=== PATIENT | female | born 1970 | race Two or more races ===

== ENCOUNTER 2017-05-12 09:37 | Emergency (ER) | payer BC ==
[2017-05-12 09:57] VITALS: BP 155/95; PULSE 84; TEMP 98.3; BMI 37.5
[2017-05-12] MEDS ORDERED: KETOROLAC TROMETHAMINE 60 MG/2 ML VIAL IM ONE (11:11)
[2017-05-12] MEDS ORDERED: KETOROLAC TROMETHAMINE 60 MG/2 ML VIAL ONE (11:17)
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
== END 2017-05-12 12:25 | disposition home or self-care (01) ==
LOC: JERFT 09:37
PROC: 3E0233Z Introduction of Anti-inflammatory into Muscle, Percutaneous Approach (ICD-10-PCS; principal; 2017-05-12)
DX: M25.511 Pain in right shoulder (principal); I10 Essential (primary) hypertension
CPT/HCPCS: 73030-TC-RT; 99281-25

== ENCOUNTER 2019-05-16 14:32 | Emergency (ER) | payer BC ==
--- NOTE | 2019-05-16 14:45 | PDOC ---
Rapid Medical Evaluation Time Seen by Provider: 05/16/19 14:43 Medical Evaluation: Allergies Allergy/AdvReac Type Severity Reaction Status Date / Time No Known Allergies Allergy Verified 05/12/17 09:53 05/16/19 14:43 I have performed a brief in-person evaluation of this patient. The patient presents with a chief complaint of: coughing, sore throat x 4 days Pertinent physical exam findings: post nasal drip, congestion I have ordered the following: nothing The patient will proceed to the ED for further evaluation. Discharge Disposition - Diagnosis URI (upper respiratory infection) - Referrals - Patient Instructions - Post Discharge Activity
[2019-05-16 14:46] VITALS: BP 136/86; PULSE 98; TEMP 98.7; BMI 37.5
[2019-05-16] MEDS ORDERED: ACETAMINOPHEN 500 MG TABLET (FP) PO ONE (15:32)
[2019-05-16] MEDS ORDERED: ACETAMINOPHEN 500 MG TABLET (FP) ONE (15:36)
--- NOTE | 2019-05-16 15:36 | PDOC ---
History of Present Illness - General Chief Complaint: Sore Throat Stated Complaint: SORE THROAT Time Seen by Provider: 05/16/19 14:43 History Source: Patient Exam Limitations: No Limitations - History of Present Illness Initial Comments: 05/16/19 15:33 48 year old female with history of tubal ligation presents for coughing, sorethroat x 2 weeks. Denies fever or chills, using no medication for symptoms today. Is this a multiple visit Asthma Patient?: No Timing/Duration: 1 week Severity: mild Modifying Factors: improves with: cold therapy Associated Symptoms: reports: cough, headaches, nausea/vomiting. denies: fever/ chills Aspirin Received prior to arrival: Yes: no aspirin today Past History - Travel Traveled outside of the country in the last 30 days: No - Past Medical History Allergies/Adverse Reactions: Allergies Allergy/AdvReac Type Severity Reaction Status Date / Time No Known Allergies Allergy Verified 05/16/19 14:46 Home Medications: Ambulatory Orders Naproxen [Naprosyn -] 500 mg PO BID #14 tablet 05/12/17 Benzonatate [Tessalon Pearls -] 100 mg PO TID #21 capsule 05/16/19 Loratadine [Claritin] 10 mg PO DAILY #10 tablet 05/16/19 COPD: No HTN: Yes (Not on meds (03/2015).) - Suicide/Smoking/Psychosocial Hx Smoking History: Never smoked Have you smoked in the past 12 months: Yes Number of Cigarettes Smoked Daily: 4 Information on smoking cessation initiated: No 'Breaking Loose' booklet given: 05/12/17 Hx Alcohol Use: No Drug/Substance Use Hx: No Substance Use Type: None Review of Systems - Review of Systems Able to Perform ROS?: Yes Is the patient limited [place] proficient: No Constitutional: No: Chills, Fever HEENTM: Yes: Throat Pain. No: Eye Pain Respiratory: No: Shortness of Breath, Stridor, Wheezing Cardiac (ROS): No: Lightheadedness, Palpitations ABD/GI: No: Blood Streaked Bowels, Poor Appetite, Poor Fluid Intake, Indigestion : No: Incontinence, Testicular Swelling Musculoskeletal: No: Joint Pain Integumentary: No: Erythema, Flushing Neurological: No: Numbness, Paresthesia, Weakness *Physical Exam - Vital Signs Last Vital Signs Temp Pulse Resp BP Pulse Ox 98.7 F 98 H 19 136/86 100 05/16/19 14:44 05/16/19 14:44 05/16/19 14:44 05/16/19 14:44 05/16/19 14:44 - Physical Exam General Appearance: Yes: Nourished, Appropriately Dressed HEENT: positive: TMs Normal, Pharyngeal Erythema Neck: positive: Supple. negative: Lymphadenopathy (R), Lymphadenopathy (L) Respiratory/Chest: positive: Lungs Clear Cardiovascular: positive: Regular Rate Neurologic: positive: Fully Oriented, Alert Medical Decision Making - Medical Decision Making 05/16/19 15:35 48 year old female with history of tubal ligation presents for coughing, sorethroat x 2 weeks. allergic rhinnitis -throat culture -analgesia 05/16/19 16:14 negative strep Rx: tessalraymond perles claritin 05/16/19 16:22 *DC/Admit/Observation/Transfer Diagnosis at time of Disposition: URI (upper respiratory infection) Qualifiers: URI type: unspecified viral URI Qualified Code(s): J06.9 - Acute upper respiratory infection, unspecified Allergic rhinitis Qualifiers: Allergic rhinitis trigger: unspecified Allergic rhinitis seasonality: unspecified Qualified Code(s): J30.9 - Allergic rhinitis, unspecified - Discharge Dispostion Disposition: HOME Condition at time of disposition: Good Decision to Admit order: No - Prescriptions Prescriptions: Benzonatate [Tessalon Pearls -] 100 mg PO TID #21 capsule Loratadine [Claritin] 10 mg PO DAILY #10 tablet - Referrals Referrals: Galileo Ledesma MD [Primary Care Provider] - - Patient Instructions Printed Discharge Instructions: DI for Viral Upper Respiratory Infection -- Adult Additional Instructions: Please minimize smoking Take medication as prescribed - Post Discharge Activity
== END 2019-05-16 16:43 | disposition home or self-care (01) ==
LOC: JERFT 14:32
DX: J06.9 Acute upper respiratory infection, unspecified (principal); J30.9 Allergic rhinitis, unspecified; Z72.0 Tobacco use
CPT/HCPCS: 87070; 87880; 99281-25

== ENCOUNTER 2019-05-26 11:18 | Emergency (ER) | payer BC ==
[2019-05-26 11:25] VITALS: BP 148/86; PULSE 86; TEMP 98.4; BMI 37.5
--- NOTE | 2019-05-26 11:54 | PDOC ---
History of Present Illness - General Chief Complaint: Eye Problem Stated Complaint: EYE PROBLEM Time Seen by Provider: 05/26/19 11:40 History Source: Patient - History of Present Illness Initial Comments: 05/26/19 11:55 Chief complaint: Eye itching and discharge Patient 48-year-old female with a history of recent URI, seen in the ER with left eye itching and discharge for 2 days. No fever and URI has resolved. Patient came here because she had the discharge this morning and her eye is red and she works in a [employer]. She has been using Visine without resolution. Patient states she started rubbing her eye GENERAL/CONSTITUTIONAL: No fever, weakness. dizziness HEAD, EYES, EARS, NOSE AND THROAT: No change in vision. left eye redness and discharge. No ear pain or discharge. No sore throat. CARDIOVASCULAR: No chest pain RESPIRATORY: No shortness of breath or cough GASTROINTESTINAL: No pain, nausea, vomiting, diarrhea or constipation GENITOURINARY: No dysuria MUSCULOSKELETAL: No neck or back pain SKIN: No rash NEUROLOGIC: No headache, vertigo, loss of consciousness, or loss of sensation. GENERAL: The patient is awake, alert, and fully oriented, in no acute distress. HEAD: Normal with no signs of trauma. EYES: Pupils equal, round and reactive to light, sclera anicteric, right conjunctiva clear. Left injected, with some dry skin to the eyelids, no signs of cellulitis ENT: pharynx: no erythema, no exudate, uvula midline NECK: supple CHEST: clear, nontender, rr ABD: soft, nontender BACK: no tenderness or signs of injury EXTREMITIES: Normal range of motion, no edema. NEUROLOGICAL: Normal speech, normal gait. SKIN: Warm, Dry Is this a multiple visit Asthma Patient?: No Past History - Past Medical History Allergies/Adverse Reactions: Allergies Allergy/AdvReac Type Severity Reaction Status Date / Time No Known Allergies Allergy Verified 05/16/19 14:46 Home Medications: Ambulatory Orders Polymyxin B Sulfate/Tmp [Polytrim Opthalmic Solution -] 1 drop OP QID #1 bot 11/09 COPD: No HTN: Yes (Not on meds (03/2015).) - Immunization History Immunization Up to Date: No - Psycho Social/Smoking Cessation Hx Smoking History: Current every day smoker Have you smoked in the past 12 months: Yes Number of Cigarettes Smoked Daily: 20 Information on smoking cessation initiated: No 'Breaking Loose' booklet given: 05/12/17 Hx Alcohol Use: No Drug/Substance Use Hx: No Substance Use Type: None *Physical Exam - Vital Signs Last Vital Signs Temp Pulse Resp BP Pulse Ox 98.4 F 86 18 148/86 98 05/26/19 11:22 05/26/19 11:22 05/26/19 11:22 05/26/19 11:22 05/26/19 11:22 Medical Decision Making - Medical Decision Making 05/26/19 11:57 Healthy 48-year-old female with history of recent URI who started having left eye itching a few days ago, was rubbing it, now it has discharge and crusting this morning. Patient does not wear contacts or have eye issues, is not having visual issues. Patient will be's prescribed eyedrops to cover for bacterial infection, use [id number] hydrocortisone around the eye for itching and take Benadryl as needed as needed. Patient will be given tomorrow off. Discussed issues, findings, results, applicable medications and treatments and follow-up. All these were understood and all questions were answered Discharge - Discharge Information Problems reviewed: Yes Clinical Impression/Diagnosis: Conjunctivitis Qualifiers: Conjunctivitis type: acute Acute conjunctivitis type: bacterial Laterality: left Qualified Code(s): H10.32 - Unspecified acute conjunctivitis, left eye Condition: Stable Disposition: HOME - Admission No - Additional Discharge Information Prescriptions: Polymyxin B Sulfate/Tmp [Polytrim Opthalmic Solution -] 1 drop OP QID #1 [facility] Prescription Drug Monitoring Program (I-STOP) results: I-STOP not reviewed - Follow up/Referral Referrals: Neha Cardona MD [Staff Physician] - - Patient Discharge Instructions Patient Printed Discharge Instructions: Conjunctivitis Additional Instructions: Use the antibiotic drops as instructed, do not wipe the eyes. You can put [id number] 1% hydrocortisone cream around the eye for itching and if needed you can take Benadryl 25 mg every 4-6 hours. Return to the ER if fever, worsening symptoms. 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
== END 2019-05-26 12:07 | disposition home or self-care (01) ==
LOC: JERFT 11:18
DX: H10.32 Unspecified acute conjunctivitis, left eye (principal)
CPT/HCPCS: 99281-25

== ENCOUNTER 2022-03-27 12:53 | Emergency (ER) | payer BC ==
[2022-03-27 13:20] VITALS: BMI 37.5
[2022-03-27] MEDS ORDERED: SODIUM CHLORIDE 0.9% 500 ML INFUS.BAG IV ONE (13:56)
[2022-03-27 14:59] LABS: BASO % 0.9 % (0-2.0); EOS % 1.5 % (0-4.5); HEMATOCRIT 32.3 % (32.4-45.2); HEMOGLOBIN 10.5 GM/dL (10.7-15.3); LYMPH % 5.8 % (8-40); MCH 23.4 pg (25.7-33.7); MCHC 32.4 g/dl (32.0-36.0); MEAN CELL VOLUME 72.1 fl (80-96); MEAN PLT VOLUME 10.9 fl (7.5-11.1); MONO % 7.8 % (3.8-10.2); PLATELET COUNT 171 10^3/uL (134-434); RBC 4.49 M/mm3 (3.60-5.2); RDW 16.6 % (11.6-15.6); WHITE BLOOD COUNT 5.8 K/mm3 (4.0-10.0)
[2022-03-27 15:02] LABS: URINE APPEARANCE CLOUDY; URINE BILIRUBIN NEGATIVE (NEGATIVE); URINE COLOR YELLOW; URINE GLUCOSE (UA) NEGATIVE (NEGATIVE); URINE KETONE NEGATIVE (NEGATIVE); URINE LEUK ESTERASE TRACE (NEGATIVE); URINE NITRITE NEGATIVE (NEGATIVE); URINE PROTEIN NEGATIVE (NEGATIVE); URINE UROBILINOGEN 0.2 mg/dL (0.2-1.0)
[2022-03-27 15:17] LABS: ALBUMIN 3.8 g/dl (3.4-5.0)
[2022-03-27 15:18] LABS: BLOOD UREA NITROGEN 7.6 mg/dL (7-18)
[2022-03-27 15:20] LABS: EPI CELLS 24 /uL (0-25.1); HYALINE CASTS 1 /uL (0-3.1); URINE RBC 17 /uL (0-23.9); URINE WBC 19 /uL (0-25.8)
[2022-03-27 15:21] LABS: URINE BACTERIA 537 /uL (0-1359)
[2022-03-27 15:22] LABS: BILIRUBIN,TOTAL 0.4 mg/dL (0.2-1); TOT PROT 7.3 g/dl (6.4-8.2)
[2022-03-27 15:27] LABS: CREATININE 0.7 mg/dL (0.55-1.3)
[2022-03-27 15:31] VITALS: BP 131/76; PULSE 97; RESP 20; TEMP 98.8
== END 2022-03-27 17:49 | disposition home or self-care (01) ==
LOC: JER 12:53
DX: N30.01 Acute cystitis with hematuria (principal)
CPT/HCPCS: 36415; 80053; 81003; 85025; 87086; 93005; 93010; 99284-25

== ENCOUNTER 2022-03-30 10:02 | Emergency (ER) | payer BC ==
[2022-03-30 10:07] VITALS: BP 123/77; PULSE 100; RESP 18; TEMP 98.7; BMI 38.3
== END 2022-03-30 11:33 | disposition home or self-care (01) ==
LOC: JERFT 10:02
DX: R39.15 Urgency of urination (principal)
CPT/HCPCS: 99281-25

== ENCOUNTER 2022-06-07 08:12 | Emergency (ER) | payer BC ==
[2022-06-07 08:22] VITALS: BP 144/86; PULSE 96; RESP 18; TEMP 98.3; BMI 36.0
[2022-06-07 11:20] LABS: BASO % 0.9 % (0-2.0); EOS % 1.3 % (0-4.5); HEMATOCRIT 31.6 % (32.4-45.2); HEMOGLOBIN 9.7 GM/dL (10.7-15.3); MCH 20.9 pg (25.7-33.7); MCHC 30.7 g/dl (32.0-36.0); MEAN CELL VOLUME 68.2 fl (80-96); MEAN PLT VOLUME 10.7 fl (7.5-11.1); MONO % 5.5 % (3.8-10.2); NEUT % 76.3 % (42.8-82.8); PLATELET COUNT 272 10^3/uL (134-434); RBC 4.64 M/mm3 (3.60-5.2); RDW 16.8 % (11.6-15.6); WHITE BLOOD COUNT 10.3 K/mm3 (4.0-10.0)
[2022-06-07 11:38] LABS: EPI CELLS >36 /uL (0-25.1); HYALINE CASTS 8 /uL (0-3.1); URINE APPEARANCE TURBID; URINE BACTERIA 89 /uL (0-1359); URINE BILIRUBIN NEGATIVE (NEGATIVE); URINE COLOR ORANGE; URINE GLUCOSE (UA) NEGATIVE (NEGATIVE); URINE KETONE TRACE (NEGATIVE); URINE LEUK ESTERASE 2+ (NEGATIVE); URINE NITRITE NEGATIVE (NEGATIVE); URINE PROTEIN 2+ (NEGATIVE); URINE RBC 23334 /uL (0-23.9); URINE WBC 285 /uL (0-25.8)
[2022-06-07 11:42] LABS: CALCIUM 9.8 mg/dL (8.5-10.1)
[2022-06-07 11:43] LABS: ALBUMIN 3.8 g/dl (3.4-5.0); BLOOD UREA NITROGEN 8.8 mg/dL (7-18)
[2022-06-07 11:46] LABS: CREATININE 0.8 mg/dL (0.55-1.3)
[2022-06-07 11:47] LABS: BILIRUBIN,TOTAL 0.8 mg/dL (0.2-1)
[2022-06-07 11:48] LABS: TOT PROT 7.6 g/dl (6.4-8.2)
== END 2022-06-07 13:05 | disposition home or self-care (01) ==
LOC: JER 08:12
DX: N93.8 Other specified abnormal uterine and vaginal bleeding (principal)
CPT/HCPCS: 36415; 80053; 81003; 84703; 85025; 87086; 99291